=== PATIENT | female | born 1970 | race Caucasian/White ===

== ENCOUNTER 2016-10-26 05:36 | Outpatient (CLI) | payer OTHER ==
[~2016-10-26] VITALS: Ht 160 cm; Wt 100.9 kg
[~2016-10-26 05:36] MED LIST: BACTRIM DS TABL1 TAB PO; BAYER CHEWABLE81 MG PO; COLACE100 MG PO; EFFEXOR75 MG PO; FISH OIL 1,0001 CA1 PO; HYDROCODONE-APA1 TAB PO; NOLVADEX10 M1 PO; PERCOCET 5-3251 TAB PO; TRICOR145 MG PO; VALIUM5 MG PO; XGEVA SC
[2016-10-26 06:07] LABS: BASOPHILS 0.3 % (0.0-2.0); EOSINOPHILS 4.1 % (0-7); HEMATOCRIT 34.7 % (36.0-48.0); HEMOGLOBIN 11.4 g/dL (12-16); IMMATURE GRANULOCYTES 1.4 % (0-5); LYMPHOCYTES 42.6 % (15-50); MCH 28.1 pg (26.0-34.0); MCHC 32.9 g/dL (31.0-37.0); MCV 85.5 fL (80.0-100.0); MEAN PLATELET VOLUME 8.5 fL (7.4-10.4); MONOCYTES 5.3 % (2-11); NEUTROPHILS 46.3 % (40-80); RBC 4.06 10x6/uL (4.00-5.40); RDW 13.9 % (11.5-14.5); WBC 7.2 10x3/uL (4.8-10.8)
[2016-10-26] MEDS ORDERED: FENOFIBRATE160 MG PO (06:18)
[2016-10-26 06:20] LABS: PLATELET COUNT 217 10x3/uL (130-400)
[2016-10-26] MEDS ORDERED: FEMARA2.5 MG PO (06:20)
[2016-10-26 06:39] LABS: ANION GAP 15.6 mmol/L (8-16); CALCIUM 9.3 mg/dL (8.5-10.1); CARBON DIOXIDE 25.2 mmol/L (21.0-32.0); CREATININE - SERUM 0.9 mg/dL (0.6-1.3); INR 0.94 (0.85-1.17); POTASSIUM - SERUM 3.8 mmol/L (3.5-5.1); PROTIME 12.4 SECONDS (11.6-15.0)
[2016-10-26 06:40] LABS: APTT 35.9 SECONDS (22.8-39.4)
[2016-10-26 06:51] VITALS: BP 123/79; Ht 160 cm; Wt 100.9 kg
--- NOTE | 2016-10-26 10:43 | NUR ---
VS WILL BE TAKEN AND PLACED ON POST OP SHEET AND PLACED IN CHART
--- NOTE | 2016-10-26 13:24 | NUR ---
1245 iv dc with catheer tip intact
== END 2016-10-26 13:00 | disposition home or self-care (01) ==
LOC: D.OPS 05:36 → D.CT 08:00 → D.OPS 13:00
PROVIDERS: General Practice
DX: J84.10 Pulmonary fibrosis, unspecified (principal); Z85.3 Personal history of malignant neoplasm of breast; Z85.830 Personal history of malignant neoplasm of bone